=== PATIENT | female | born 1985 | race American Indian/Alaskan Native ===

== ENCOUNTER 2018-10-08 16:00 | Outpatient (RCR) | payer OTHER, SELFPAY ==
--- NOTE | 2018-10-03 17:30 | PT.OIE ---
Current Diagnoses Complex regional pain syndrome I of left upper limb (10/03/18) Complex regional pain syndrome I of left lower limb (10/03/18) Provider Visit Care Team Role Provider Type Liliana Solomon ND Primary Care Provider Non-Staff Specialty: Naturopathy Address: [address] [place] [address], [id number] Email: Other Providers Specialty: Address: Phone: Fax: Email: Russel Burgos Attending Provider Non-Staff Specialty: Anesthesiology Address: [address] [place] [address], [address], [place], [address] Email: Physical Therapy Initial Evaluation PT-OP-A Visit Information Start: 10/03/18 17:19 Freq: Status: Active Protocol: Document 10/03/18 17:20 EA (Rec: 10/03/18 17:38 EA [id number]) Out-Patient Physical Therapy Visit Information Visit Information Visit Type Initial Evaluation Visit Note Patient wants to get TENS prescription Visit Start Time 16:45 Visit Stop Time 17:15 Total Visit Minutes 30 Visit Number 1 Evaluation Information Evaluation Date 10/03/18 PT-OP-B Current Condition Start: 10/03/18 17:19 Freq: Status: Active Protocol: Document 10/03/18 17:20 EA (Rec: 10/03/18 17:38 EA [id number]) Current Condition History of Current Condition Onset Date December 2014 Current Complaints CRPS : C/O left foot pain rated 6/10 History of Current Condition Present condition started after left fifth toe fracture in 2014; states used boot for 12 weeks and pain intensified though fracture was healed. Pt reports had formal PT in past which strengthening exercises helps to gain back strength but not completely resolved pain. Pt mentioned that she is diagnosed also with Raynoud's disease and any cold therapy for pain does not tolerated. Pt went to her doctor last month and decided to try TENS for relieving pain. She reports that TENS would benefit her to lessen left foot pain. Prior Treatments and Tests Formal PT with limited results Future Testing and Treatments Planned None identified Treatment Goals Patient/Caregiver Goals Patient wants to learn how to use TENS safe Patient wanted to lessen the pain by using TENS. Prior Functional Status Baseline Function- ADL's Independent Baseline Function- Mobility Independent Baseline Function- Gait Indep with no limitation Baseline Function- Work/School Indep with no limitation prior to 2014 left 5th toe injury Baseline Function- Recreation/Hobbies Indep with no limitation prior to 2014 left small toe injury Current Functional Impairments (Reported) Functional Limitations- ADL's Indep with min decreased standing activities tolerance Functional Limitations- Mobility/Gait Indep with no gait deviation. Functional Limitations- Work/School Indep with limitation in standing actvities, per patient. 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 Patient Reported Progress Same OP-PT Pain Assessment Location Left Lateral Foot Pain Location Details Left lateral foot Intensity 6 Scale Used Numeric (1 - 10) Description Chronic Tender Frequency Intermittent Pain Aggravating Factors Position Activity Pain Alleviating Factors Heat Other Pain Alleviating Factors TENS Comments Pain Comments Facial grimace upon palpation. PT-OP-E Functional Tests Start: 10/03/18 17:19 Freq: Status: Active Protocol: Document 10/03/18 17:17 EA (Rec: 10/07/18 07:32 EA [id number]) Functional Tests Other 2 Name of Test Walk on toes and heels Comment Patient able to walk on toes with no signs of weight bearing deficiency. 1 Name of Test Single leg stance L: able > 5 secs, R able > 5 secs PT-OP-G Mobility & Gait Start: 10/03/18 17:19 Freq: Status: Active Protocol: Document 10/03/18 17:17 EA (Rec: 10/07/18 07:32 EA [id number]) OP Gait Assessment Gait Gait Assistance Required: Independent Able to Maintain Weight Bearing Status Yes During Gait Comments Gait Comments Patient ambulate with no AD on flat level surface with no gait deviation noted. Pt has WFL gait PT-OP-J Posture/Palpation/Skin Start: 10/03/18 17:19 Freq: Status: Active Protocol: Document 10/03/18 17:17 EA (Rec: 10/07/18 07:32 EA [id number]) Posture Evaluation Position Standing Evaluation View ant/lat Head/C-Spine Posture Neutral Position T-Spine Posture Neutral Pelvis Posture Neutral Weight Distribution Balanced Hip Posture (L) Neutral (R) Neutral Ankle/Foot Posture (L) Neutral (R) Neutral Comments Posture Comments Patient posture demonstrates WFL. Palpation Assessment Location One Palpation Location Left lateral foot Palpation Findings Tenderness Palpation Details 1/4 tenderness over the later left foot and 5th toe. Skin Assessment Edema Assessment Left Foot Comments Normal skin with no active signs of inflammation. PT-OP-K Range of Motion Start: 10/03/18 17:19 Freq: Status: Active Protocol: Document 10/03/18 17:17 EA (Rec: 10/07/18 07:32 EA [id number]) Ankle and Foot Goniometric Range of Motion Ankle and Foot Measured in Degrees Left Active Ankle/Foot ROM WFL Yes Testing Position Sitting Toe Range of Motion Toe Measured in Degrees Left 5th Digit Toe ROM WFL Yes PT-OP-M Strength Start: 10/03/18 17:19 Freq: Status: Active Protocol: Document 10/03/18 17:20 EA (Rec: 10/07/18 10:21 EA [id number]) Hip Strength Hip Manual Muscle Testing Left Flexion (L2) 5 Normal Extension (S1) 5 Normal Abduction 5 Normal Adduction 5 Normal External Rotation 5 Normal Internal Rotation 5 Normal Knee Strength Knee Manual Muscle Testing Left Flexion (S2) 5 Normal Extension (L3) 5 Normal Ankle/Foot Strength Ankle and Foot Manual Muscle Testing Left Dorsiflexion (L4) 5 Normal Plantarflexion (S1) 5 Normal Inversion 5 Normal Eversion (S1) 5 Normal Toe Strength Toe Manual Muscle Testing Left 5th Toe Flexion 3+ Fair+ Comments MMT reveals at least 3+/5 but unable to tolerate more resistance due to tenderness, therefore inaccurate MMT tests at this time due to pain. PT-OP-T Assessment and Plan Start: 10/03/18 17:19 Freq: Status: Active Protocol: Document 10/03/18 17:20 EA (Rec: 10/03/18 17:38 EA [id number]) Physical Therapy Assessment Rehab Potential Rehabilitation Potential Fair Evaluation Complexity Number of Personal Factors/Comorbidities 0 Number of Body Systems Impaired 1-2 Clinical Presentation at Evaluation Evolving Impairments Impairments Pain Soft Tissue Mobility Strength Other Concerns Barriers to Rehabilitation Chronicity of the condition Goals Two Impairment Lack of understanding with the use of TENS machine Short Term Goal (STG) Patient will learn to use TENS independently. STG Duration 2 wks One Impairment No HEP in place Short Term Goal (STG) Patient will learn home exercises program safely. STG Duration 2 wks Assessment Summary Assessment 33 y/o F patient with referring diagnosis of CRPS 1 presented today with normal gait with ability to walk on toes and heels with no gait deviation, no acute distress, acute swelling/inflammation. MMT to left fifth toe abductors, flexor, adductors reveals 3+/5 but unable to resist higher resistance due to tenderness. Slight limitation to PIP flexion ROM but did not show any reason to limit functional gait. I discussed to patient the benefit of placing her for skilled PT which she refused as she believes application of TENS would improve pain and strengthen exercises and manual application would not benefit her main pain complaint. Pt exhibits no understanding with the use of TENS and would benefit with PT to educate and to guide safe use; however skilled therapuetic exercises and manual PT may not a good option at this time. Physical Therapy Plan Frequency and Duration Frequency of Treatment 1x/Week Duration of Treatment 3 wks Plan of Care Start Date 10/03/18 Plan of Care End Date 10/24/18 Therapeutic Interventions Therapeutic Interventions Home Exercise Program Self-Care/Home Management Soft Tissue Mobilization Modalities Electric Stimulation Next Visit Focus/Plan Next Note Type Treatment Note Next Visit Plan To fill up LEFS ; TENS treatment and education, HEP as needed. assess response to TENS during and after the treatment.
--- NOTE | 2018-10-03 17:30 | PT.OPPOC ---
Current Diagnoses Complex regional pain syndrome I of left upper limb (10/03/18) Complex regional pain syndrome I of left lower limb (10/03/18) Provider Visit Care Team Role Provider Type Liliana Solomon ND Primary Care Provider Non-Staff Specialty: Naturopathy Address: [address] [place] [address], [id number] Email: Other Providers Specialty: Address: Phone: Fax: Email: Russel Burgos Attending Provider Non-Staff Specialty: Anesthesiology Address: [address] [place] [address], [address], [place], [address] Email: Plan Of Care PT-OP-T Assessment and Plan Start: 10/03/18 17:19 Freq: Status: Active Protocol: Document 10/03/18 17:20 EA (Rec: 10/03/18 17:38 EA [id number]) Physical Therapy Assessment Rehab Potential Rehabilitation Potential Fair Evaluation Complexity Number of Personal Factors/Comorbidities 0 Number of Body Systems Impaired 1-2 Clinical Presentation at Evaluation Evolving Impairments Impairments Pain Soft Tissue Mobility Strength Other Concerns Barriers to Rehabilitation Chronicity of the condition Goals Two Impairment Lack of understanding with the use of TENS machine Short Term Goal (STG) Patient will learn to use TENS independently. STG Duration 2 wks One Impairment No HEP in place Short Term Goal (STG) Patient will learn home exercises program safely. STG Duration 2 wks Assessment Summary Assessment 33 y/o F patient with referring diagnosis of CRPS 1 presented today with normal gait with ability to walk on toes and heels with no gait deviation, no acute distress, acute swelling/inflammation. MMT to left fifth toe abductors, flexor, adductors reveals 3+/5 but unable to resist higher resistance due to tenderness. Slight limitation to PIP flexion ROM but did not show any reason to limit functional gait. I discussed to patient the benefit of placing her for skilled PT which she refused as she believes application of TENS would improve pain and strengthen exercises and manual application would not benefit her main pain complaint. Pt exhibits no understanding with the use of TENS and would benefit with PT to educate and to guide safe use; however skilled therapuetic exercises and manual PT may not a good option at this time. Physical Therapy Plan Frequency and Duration Frequency of Treatment 1x/Week Duration of Treatment 3 wks Plan of Care Start Date 10/03/18 Plan of Care End Date 10/24/18 Therapeutic Interventions Therapeutic Interventions Home Exercise Program Self-Care/Home Management Soft Tissue Mobilization Modalities Electric Stimulation Next Visit Focus/Plan Next Note Type Treatment Note Next Visit Plan To fill up LEFS ; TENS treatment and education, HEP as needed. assess response to TENS during and after the treatment. Plan of Care Dates Plan of Care Start Date 10/03/18 Plan of Care End Date 10/24/18 Please Sign and Return: I have reviewed this Plan of Care and certify that the skilled therapy services above are required to meet the patient?s needs. Physician Signature Date Printed Name and Credentials Clinical Instructor Signature Printed Name and Credentials
--- NOTE | 2018-10-08 16:00 | PT.OTN ---
Current Diagnoses Complex regional pain syndrome I of left upper limb (10/08/18) Complex regional pain syndrome I of left lower limb (10/08/18) Physical Therapy Treatment Note PT-OP-A Visit Information Start: 10/03/18 17:19 Freq: Status: Active Protocol: Document 10/08/18 16:00 SOFIE (Rec: 10/10/18 15:31 [email or web address] [id number]) Out-Patient Physical Therapy Visit Information Visit Information Visit Type Other Visit Note Pt informed at the start of her appointment that insurance doesn't cover TENS unit, the cost of bement [employer] TENs unit and other purchasing, this appointment can be used for TENS unit pt education and safety, and trial in clinic. Pt became upset and left clinic.
--- NOTE | 2018-11-27 07:59 | PT.OPDS ---
Current Diagnoses Complex regional pain syndrome I of left upper limb (10/08/18) Complex regional pain syndrome I of left lower limb (10/08/18) Provider Visit Care Team Role Provider Type Liliana Solomon ND Primary Care Provider Non-Staff Specialty: Naturopathy Address: [address] [place] [address], [address] Email: Other Providers Specialty: Address: Phone: Fax: Email: Russel Burgos Attending Provider Non-Staff Specialty: Anesthesiology Address: [address] [place] [address], [address], [place], [address] Email: Visit Number Visit Number 1 Discharge Summary PT-OP-B Current Condition Start: 10/03/18 17:19 Freq: Status: Active Protocol: Document 10/03/18 17:20 EA (Rec: 10/03/18 17:38 EA [id number]) Current Condition History of Current Condition Onset Date December 2014 Current Complaints CRPS 1 History of Current Condition Present condition started after left fifth toe fracture in 2014; states used boot for 12 weeks and pain intensified though fracture was healed. Pt reports had formal PT in past which strengthening exercises helps to gain back strength but not completely resolved pain. Pt mentioned that she is diagnosed also with Raynoud's disease and any cold therapy for pain does not tolerated. Pt went to her doctor last month and decided to try TENS for relieving pain. She reports that TENS would benefit her to lessen left foot pain. Prior Treatments and Tests Formal PT with limited results Future Testing and Treatments Planned None identified Treatment Goals Patient/Caregiver Goals Patient wants to learn how to use TENS safe Patient wanted to lessen the pain by using TENS. Prior Functional Status Baseline Function- ADL's Independent Baseline Function- Mobility Independent Baseline Function- Gait Indep with no limitation Baseline Function- Work/School Indep with no limitation prior to 2015 left 5th toe injury Baseline Function- Recreation/Hobbies Indep with no limitation prior to 2015 left small toe injury Current Functional Impairments (Reported) Functional Limitations- ADL's Indep with min decreased standing activities tolerance Functional Limitations- Mobility/Gait Indep with no gait deviation. Functional Limitations- Work/School Indep with limitation in standing actvities, per patient. 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 PT-OP-E Functional Tests Start: 10/03/18 17:19 Freq: Status: Active Protocol: Document 10/03/18 17:17 EA (Rec: 10/07/18 07:32 EA [id number]) Functional Tests Other 2 Name of Test Walk on toes and heels Comment Patient able to walk on toes with no signs of weight bearing deficiency. 1 Name of Test Single leg stance L: able > 5 secs, R able > 5 secs PT-OP-G Mobility & Gait Start: 10/03/18 17:19 Freq: Status: Active Protocol: Document 10/03/18 17:17 EA (Rec: 10/07/18 07:32 EA [id number]) OP Gait Assessment Gait Gait Assistance Required: Independent Able to Maintain Weight Bearing Status Yes During Gait Comments Gait Comments Patient ambulate with no AD on flat level surface with no gait deviation noted. Pt has WFL gait PT-OP-J Posture/Palpation/Skin Start: 10/03/18 17:19 Freq: Status: Active Protocol: Document 10/03/18 17:17 EA (Rec: 10/07/18 07:32 EA [id number]) Posture Evaluation Position Standing Evaluation View ant/lat Head/C-Spine Posture Neutral Position T-Spine Posture Neutral Pelvis Posture Neutral Weight Distribution Balanced Hip Posture (L) Neutral (R) Neutral Ankle/Foot Posture (L) Neutral (R) Neutral Comments Posture Comments Patient posture demonstrates WFL. Palpation Assessment Location One Palpation Location Left lateral foot Palpation Findings Tenderness Palpation Details 1/4 tenderness over the later left foot and 5th toe. Skin Assessment Edema Assessment Left Foot Comments Normal skin witg no active signs of inflammation. PT-OP-K Range of Motion Start: 10/03/18 17:19 Freq: Status: Active Protocol: Document 10/03/18 17:17 EA (Rec: 10/07/18 07:32 EA [id number]) Ankle and Foot Goniometric Range of Motion Ankle and Foot Measured in Degrees Left Active Ankle/Foot ROM WFL Yes Testing Position Sitting Toe Range of Motion Toe Measured in Degrees Left 5th Digit Toe ROM WFL Yes PT-OP-M Strength Start: 10/03/18 17:19 Freq: Status: Active Protocol: Document 10/03/18 17:20 EA (Rec: 10/07/18 10:21 EA [id number]) Hip Strength Hip Manual Muscle Testing Left Flexion (L2) 5 Normal Extension (S1) 5 Normal Abduction 5 Normal Adduction 5 Normal External Rotation 5 Normal Internal Rotation 5 Normal Knee Strength Knee Manual Muscle Testing Left Flexion (S2) 5 Normal Extension (L3) 5 Normal Ankle/Foot Strength Ankle and Foot Manual Muscle Testing Left Dorsiflexion (L4) 5 Normal Plantarflexion (S1) 5 Normal Inversion 5 Normal Eversion (S1) 5 Normal Toe Strength Toe Manual Muscle Testing Left 5th Toe Flexion 3+ Fair+ Comments MMT reveals at least 3+/5 but unable to tolerate more resistance due to tenderness, therefore inaccurate MMT tests at this time due to pain. PT-OP-T Assessment and Plan Start: 10/03/18 17:19 Freq: Status: Active Protocol: Document 11/27/18 07:56 EA (Rec: 11/27/18 07:59 EA [id number]) Physical Therapy Assessment Assessment Summary Assessment Pt is discharge due to none compliant with scheduled TENS trial appointment. Physical Therapy Plan Discharge Physical Therapy Discharge Reasons No Longer Attending PT
== END 2018-10-09 11:57 ==
LOC: PHYS 16:00
PROVIDERS: PCP Naturopath; Visit Provider Anesthesiology
DX: G90.512 Complex regional pain syndrome I of left upper limb (principal); G90.522 Complex regional pain syndrome I of left lower limb
CPT/HCPCS: 97161

== ENCOUNTER → 2018-10-09 06:58 | Outpatient (CLI) | payer OTHER, SELFPAY ==
[2018-10-11 13:53] LABS: Vitamin B6 57.1 ng/mL (2.1-21.7)
== END ==
PROVIDERS: PCP Family Medicine; Visit Provider Family Medicine
DX: G90.50 Complex regional pain syndrome I, unspecified (principal)
CPT/HCPCS: 36415; 84207

== ENCOUNTER → 2022-05-18 07:46 | Outpatient (CLI) | payer OTHER, SELFPAY ==
--- NOTE | 2022-05-18 | DI.ECHO.S_ITS ---
[facility]---------+ [facility] +---------+ : : [address] : : : : [id number] : : : : Phone: [phone]+ Echocardiogram Report + + :Name: EARL CORRAL Study Date: 05/18/2022 Height: 65 in : :[facility] ReadingLocation: Weight: 165 lb : : Gender: Female BSA: 1.8 m2 : :: 1985 Age: 36 yrs BP: 124/96 mmHg: :Reason For Study: Tachycardia : :Ordering Physician: VIOLETTE, : :CHAN Performed By: Rivera Sanchez : :Referring: CHAN OAKES : + + Interpretation Summary 1) Normal left ventricular size, thickness, wall motion, and systolic function (EF 55-60%). 2) Normal right ventricular size and function. 3) No significant valvular abnormalities. 4) No prior Echo available for comparison. Procedure: A two-dimensional transthoracic echocardiogram with color flow and Doppler was performed. The study quality was technically adequate. There is no prior echocardiogram noted for this patient. The patient was in normal sinus rhythm during the exam. Left Ventricle: The left ventricle is normal in size and wall thickness. Left ventricular systolic function is normal. The ejection fraction is estimated to be 55-60%. There are no focal wall motion abnormalities. Diastolic parameters suggest probable normal left ventricular diastolic function and normal filling pressures. Right Ventricle: The right ventricle is normal in size and function. Atria: Both atria are normal in size. The interatrial septum grossly appears intact with no obvious evidence for an atrial septal defect. Mitral Valve: The mitral valve is normal in structure and function. There is trace mitral regurgitation. Aortic Valve: The aortic valve is normal in structure and function. There is no aortic valve stenosis. No aortic regurgitation is present. Tricuspid Valve: The tricuspid valve is normal in structure and function. No tricuspid regurgitation. Pulmonary artery pressures cannot be estimated because of the lack of a measurable TR jet velocity. Pulmonic Valve: The pulmonic valve is not well seen, but is grossly normal. There is no pulmonic valvular regurgitation. Great Vessels: The aortic root is normal size. The dimensions of the ascending aorta are normal. The IVC is of normal diameter and collapses greater than 50% with a sniff. This suggests a low right atrial pressure of 3 mm Hg. Pericardium/ Pleura There is no pericardial effusion. There is no pleural effusion. MMode/2D Measurements & Calculations LVIDd: 4.1 cm LVOT diam: 2.2 cm LVIDs: 2.5 cm Ao root diam: 2.9 cm FS: 39.0 % asc Aorta Diam: 3.0 cm IVSd: 0.70 cm LVPWd: 0.80 cm LV salvador. diameter/BSA (cm/m^2): 2.2 LV sys. diameter/BSA (cm/m^2): 1.4 LA dimension: 2.5 cm RA long axis: 4.0 cm LA A2 area: 11.9 cm2 LA A4 area: 11.1 cm2 LA length (vol): 4.0 cm LA vol: 28.0 ml LA vol index: 15.3 ml/m2 TAPSE_phl: 2.3 cm Doppler Measurements & Calculations Ao V2 max: 97.6 cm/sec LVOT Max Jordan: 95.3 cm/sec Ao V2 mean: 73.5 cm/sec LV V1 max P.6 mmHg Ao max P.0 mmHg LV V1 VTI: 19.1 cm Ao mean P.0 mmHg KOKO(I,D): 3.7 cm2 Ao V2 VTI: 19.5 cm KOKO(V,D): 3.7 cm2 sev ratio: 0.98 KOKO indexed to BSA (cm^2/m^2): 2.0 MV E max jordan: 66.8 cm/sec SV(LVOT): 72.6 ml MV A max jordan: 52.7 cm/sec MV E/A: 1.3 Med Peak E' Jordan: 10.3 cm/sec E/E' med: 6.5 Lat Peak E' Jordan: 16.3 cm/sec E/E' lat: 4.1 E/e' average: 5.3 MV dec time: 0.27 sec AV VR_phl: 0.98 MV P1/2t-pr_phl: 78.0 msec KOKO(VTI)/BSA_phl: 2.0 Reading Physician:12:15 PM
== END ==
PROVIDERS: PCP Family Medicine; Referring Provider Family Medicine; Visit Provider Family Medicine
DX: R00.0 Tachycardia, unspecified (principal)
CPT/HCPCS: 93306